=== PATIENT | female | born 1990 | race Caucasian/White ===

== ENCOUNTER 2016-12-14 09:36 | Emergency (ER) | payer MEDICAID ==
[~2016-12-14] VITALS: Ht 162.6 cm; Wt 106.5 kg
[2016-12-14 09:39] VITALS: BP 134/90; PULSE 119; RESP 16; TEMP 100.4; O2SAT 98
[2016-12-14 09:53] LABS: BLOOD, URINE SMALL (NEG); GLUCOSE,URINE NEG (NEG); KETONE, URINE NEG (NEG); NITRITE,URINE NEG (NEG); PH, URINE 5.5 (5.0-8.5)
[2016-12-14 09:57] LABS: METHOD OF COLLECTION CLEAN CATCH; URINE COLOR YELLOW (YELLW/STRAW)
[2016-12-14 09:58] LABS: COMMENT (UR) CULTURE INDICATED; CULTURE IF INDICATED CULTURE INDICATED; SQUAMOUS EPITHELIAL CELL URINE 0-5 /hpf (0-5)
[2016-12-14] MEDS ORDERED: CIPROFLOXACIN 400 MG PREMIX 200 ML IV ONE (10:45)
--- NOTE | 2016-12-14 10:49 | PD ---
HPI Chief Complaint: Complaint Time Seen by Provider: 10:32 Travel History International Travel<30 days: No Contact w/Intl Traveler<30days: No Traveled to known affect area: No History of Present Illness HPI This is a 26-year-old female who presents to the emergency department with onset of burning and discomfort in her lower abdomen that started on Wednesday. She thought she had a urinary tract infection so she took some Azo by her symptoms of only worsen. Over the past several days she's developed severe back pain on both sides, constant, moderate severity associated with a fever. She denies any vomiting. She denies any vaginal discharge. She's had a tubal ligation in the past. PFSH Past Medical History Diminished Hearing: No Tetanus Vaccination: Unknown Influenza Vaccination: No ?: Not LMP: TUBAL Tubal Ligation: Yes Social History Alcohol Use: No Tobacco Use: Yes (11/23 PPD) Substance Use: No Allergies-Medications (Allergen,Severity, Reaction): Coded Allergies: Penicillin (Verified Allergy, Severe, TOLD CHILD, 12/14/16) Reported Meds & Prescriptions Reported Meds & Active Scripts Active No Active Prescriptions or Reported Medications Review of Systems Except as stated in HPI: all other systems reviewed are Neg Physical Exam Narrative GENERAL: Well-nourished, well-developed patient. SKIN: Warm and dry. HEAD: Normocephalic. EYES: No scleral icterus. No injection or drainage. NECK: Supple, trachea midline. CARDIOVASCULAR: Regular rate and rhythm without murmurs. RESPIRATORY: Breath sounds equal bilaterally. No accessory muscle use. GASTROINTESTINAL: Abdomen soft, moderately tender to palpation in the suprapubic region with no rebound or guarding. : Bilateral CVA tenderness. MUSCULOSKELETAL: No cyanosis, or edema. Data Data Last Documented VS Vital Signs Date Time Temp Pulse Resp B/P Pulse Ox O2 Delivery O2 Flow Rate FiO2 12/14/16 11:15 91 18 96/76 98 Room Air 12/14/16 09:39 100.4 Orders Urinalysis - C+S If Indicated (12/14/16 09:44) Urine Culture (12/14/16 09:45) Complete Blood Count With Diff (12/14/16 10:33) Basic Metabolic Panel (Bmp) (12/14/16 10:33) ^ Insert Iv (12/14/16 10:33) Ciprofloxacin 400 Mg Premix (Cipro 400 M (12/14/16 10:45) Ketorolac Inj (Toradol Inj) (12/14/16 11:30) Labs Laboratory Tests Test 12/14/16 12/14/16 09:45 10:45 Urine Collection Type CLEAN CATCH Urine Color YELLOW Urine Turbidity CLEAR Urine pH 5.5 Urine Specific [place] 1.013 Urine Protein NEG mg/dL Urine Glucose (UA) NEG mg/dL Urine Ketones NEG mg/dL Urine Occult Blood SMALL Urine Nitrite NEG Urine Bilirubin NEG Urine Leukocyte Esterase TRACE Urine RBC 4-9 /hpf Urine WBC 20-24 /hpf Urine WBC Clumps FEW Urine Squamous Epithelial 0-5 /hpf Cells Microscopic Urinalysis Comment CULTURE INDICATED Urine Collection Time 09:45 White Blood Count 14.6 TH/MM3 Red Blood Count 5.08 MIL/MM3 Hemoglobin 14.3 GM/DL Hematocrit 43.9 % Mean Corpuscular Volume 86.5 FL Mean Corpuscular Hemoglobin 28.2 PG Mean Corpuscular Hemoglobin 32.6 % Concent Red Cell Distribution Width 12.9 % Platelet Count 228 TH/MM3 Mean Platelet Volume 9.6 FL Neutrophils (%) (Auto) 88.8 % Lymphocytes (%) (Auto) 4.1 % Monocytes (%) (Auto) 4.3 % Eosinophils (%) (Auto) 1.1 % Basophils (%) (Auto) 1.7 % Neutrophils # (Auto) 13.0 TH/MM3 Lymphocytes # (Auto) 0.6 TH/MM3 Monocytes # (Auto) 0.6 TH/MM3 Eosinophils # (Auto) 0.2 TH/MM3 Basophils # (Auto) 0.2 TH/MM3 CBC Comment DIFF FINAL Differential Comment Sodium Level 141 MEQ/L Potassium Level 4.4 MEQ/L Chloride Level 107 MEQ/L Carbon Dioxide Level 24.7 MEQ/L Anion Gap 9 MEQ/L Blood Urea Nitrogen 16 MG/DL Creatinine 0.73 MG/DL Estimat Glomerular Filtration 97 ML/MIN Rate Random Glucose 104 MG/DL Calcium Level 9.0 MG/DL [facility] Medical Decision Making Medical Screen Exam Complete: Yes Emergency Medical Condition: Yes Interpretation(s) Fever, tachycardia, normotensive Electrolytes are reassuring Urinalysis: Urinary tract infection Differential Diagnosis Pyelonephritis, urinary tract infection, appendicitis, colitis, cholecystitis, cholelithiasis Narrative Course This is a 26-year-old female who presents to the emergency department with fever and back pain as well as symptoms consistent with a urinary tract infection. She was placed on a monitor and an IV was established. Labs demonstrate a leukocytosis and urinalysis is consistent with infection. Patient was treated for pyelonephritis with IV ciprofloxacin and IV hydration. She was given Toradol for pain. I think at this time she is appropriate for outpatient management as she is otherwise young and healthy. I did advise her to return to the emergency department if her symptoms worsen and we did discuss the risks of ciprofloxacin but given her penicillin allergy at think this is a good medication choice. Diagnosis Primary Impression: Pyelonephritis Patient Instructions: General Instructions Additional Instructions: If you develop fever, persistent vomiting, back pain, or inability to eat return to the emergency department as your urine infection may have progressed to a kidney infection. Complete your antibiotics as prescribed. Stay well hydrated with Gatorade or water. Followup with your primary care physician in 2-3 days if your symptoms have not resolved. Med/Other Pt SpecificInfo: Prescription(s) given Scripts Naproxen 500 Mg [id number] Mg PO BID PRN (PAIN SCALE 4 TO 10) #20 TAB Prov:Clari Jones MD 12/14/16 Ondansetron Odt (Zofran Odt)4 Mg Tab4 Mg SL Q6HR PRN (Nausea/Vomiting) #15 TAB Prov:Clari Jones MD 12/14/16 Ciprofloxacin 500 Mg [id number] Mg PO BID 10 Days Prov:Clari Jones MD 12/14/16 Disposition: 01 DISCHARGE HOME Condition: Stable Clari Jones MD Dec 14, 2016 10:49
[2016-12-14 10:57] LABS: BASOPHIL # 0.2 TH/MM3 (0-0.2); BASOPHIL % 1.7 % (0.0-2.0); EOSINOPHIL # 0.2 TH/MM3 (0-0.4); EOSINOPHIL % 1.1 % (0.0-4.0); HEMATOCRIT 43.9 % (35.0-46.0); LYMPH % 4.1 % (9.0-44.0); LYMPHOCYTE # 0.6 TH/MM3 (1.0-4.8); MEAN CELL VOLUME 86.5 FL (80.0-100.0); MEAN CORPUSCULAR HEMOGLOBIN 28.2 PG (27.0-34.0); MEAN CORPUSCULAR HGB CONC 32.6 % (32.0-36.0); MONO % 4.3 % (0.0-8.0); NEUT % 88.8 % (16.0-70.0); PLATELET COUNT 228 TH/MM3 (150-450); RED BLOOD COUNT 5.08 MIL/MM3 (4.00-5.30); RED CELL DISTRIBUTION WIDTH 12.9 % (11.6-17.2); WHITE BLOOD COUNT 14.6 TH/MM3 (4.0-11.0)
[2016-12-14 10:58] LABS: HEMO FLAGS DIFF FINAL
[2016-12-14 11:03] LABS: POTASSIUM 4.4 MEQ/L (3.5-5.1)
[2016-12-14 11:07] LABS: BICARBONATE 24.7 MEQ/L (21.0-32.0)
[2016-12-14 11:15] VITALS: BP 96/76; PULSE 91; RESP 18; O2SAT 98
[2016-12-14] MEDS ORDERED: KETOROLAC TROMETHAMINE 30 MG/ML (IVP) VIAL IV PUSH ONE (11:30)
[2016-12-14] MEDS ORDERED: NAPR500T PO (11:43)
[2016-12-14] MEDS ORDERED: CIPR500T2 PO (11:43)
[2016-12-14] MEDS ORDERED: ZOFR4TAB3 SL (11:43)
[2016-12-14 12:15] VITALS: BP 101/56; PULSE 80; RESP 20; O2SAT 98
== END 2016-12-14 12:45 | disposition home or self-care (01) ==
LOC: PHED 09:36 → PHEFT 12:45
DX: N12 Tubulo-interstitial nephritis, not specified as acute or chronic (principal); B96.20 Unspecified Escherichia coli [E. coli] as the cause of diseases classified elsewhere; F17.210 Nicotine dependence, cigarettes, uncomplicated
CPT/HCPCS: 80048; 81001; 85025; 87077; 87086; 87186; 96374; 96375; 99284; J0744; J1885